=== PATIENT | female | born 1980 | race Caucasian/White ===

== ENCOUNTER 2018-06-19 07:01 | Day surgery (SDC) | payer BC ==
[2018-06-19] VITALS (10 sets, daily range): BP systolic 105–135; BP diastolic 62–82; PULSE 68–88; RESP 16–21
[~2018-06-19] VITALS: Ht 152.4 cm; Wt 61.0 kg
[~2018-06-19 07:01] MED LIST: CEFAZOLIN 2 GM/50 ML (PMX) 50 ML IVPB ONE
--- NOTE | 2018-06-19 08:43 | PREAC ---
Date/Time of Note Date/Time of Note DATE: 06/19/18 TIME: 08:42 Anesthesia Eval and Record Evaluation Time Pre-Procedure Interview DATE: 06/19/18 TIME: 08:42 Age 37 Sex female NPO: 8 hrs Preoperative diagnosis right foot bunions Planned procedure right foot bunionectomy Past Medical History Past Medical History: None Surgery & Anesthesia Issues No known issue Meds Anticoagulation: No Beta Russ within 24 hr: No Reason Beta Russ not given: Pt. not on B-Russ No Active Prescriptions or Reported Meds Meds reviewed: Yes Allergies Coded Allergies: No Known Allergy (Verified , 06/19/18) Allergies Reviewed: Yes Labs/Studies Labs Reviewed: Reviewed by anesthesiologist test: Negative Pre-procedure Exam Last vitals Vital Signs Date Temp Pulse Resp B/P (MAP) Pulse Ox O2 O2 Flow FiO2 Time Delivery Rate 06/19/18 97.0 78 16 125/68 98 Room Air 08:08 (87) Airway: Adequate mouth opening, Adequate thyromental dist Mallampati: Mallampati II Teeth: Normal Lung: Normal Heart: Normal ASA Physical Status ASA physical status: 1 Emergency: None Planned Anesthetic General/MAC: LMA Planned Pain Management Parenteral pain med, Local by surgeon Pre-operative Attestations Prior to commencing anesthesia and surgery, the patient was re-evaluated, there was verification of: *The patient's identity *The results of appropriate recent lab work and preoperative vital signs *The above evaluation not changing prior to induction *Anesthetic plan, risk benefits, alternative and complications discussed with patient/family; questions answered; patient/family understands, accepts and wishes to proceed. KYLAH FOLEY June 19, 2018 08:43
--- NOTE | 2018-06-19 09:13 | HPN ---
Date/Time of Note Date/Time of Note DATE: 06/19/18 TIME: 09:13 Interval H&P Admission Note Pt. seen H&P reviewed: No system changes ZINA COONEY DPM June 19, 2018 09:13
[2018-06-19] MEDS ORDERED: DESFLURANE 15 MIN ONE (09:30)
[2018-06-19] MEDS ORDERED: POLYMYXIN/BACITRACIN 1L IRRIG ONE (09:38)
[2018-06-19] MEDS ORDERED: BUPIVACAINE 0.5% (SDV) 30 ML INJ ONE (09:38)
[2018-06-19] MEDS ORDERED: LIDOCAINE 2% (SDV) 5 ML INJ ONE (09:43)
[2018-06-19] MEDS ORDERED: FENTAnyl 50 MCG/ML VIAL ONE ×2 (09:43→10:02)
[2018-06-19] MEDS ORDERED: CEFAZOLIN 1 GM INJ ONE (09:43)
[2018-06-19] MEDS ORDERED: MIDAZOLAM 1 MG/ML 2 ML INJ ONE (09:43)
[2018-06-19] MEDS ORDERED: PROPOFOL 20 ML ONE (09:43)
[2018-06-19] MEDS ORDERED: ONDANSETRON 4 MG INJ ONE (09:54)
[2018-06-19] MEDS ORDERED: DEXAMETHASONE 4 MG/ML 5 ML INJ ONE (09:54)
[2018-06-19] MEDS ORDERED: FAMOTIDINE 20 MG INJ ONE (09:54)
[2018-06-19] MEDS ORDERED: METOCLOPRAMIDE 10 MG INJ ONE (09:54)
[2018-06-19] MEDS ORDERED: ESMOLOL 10 ML ONE (10:09)
[2018-06-19] MEDS ORDERED: KETOROLAC 30 MG INJ ONE (10:26)
[2018-06-19] MEDS ORDERED: HYDROmorphONE 1 MG/5 ML IV SYRINGE IV PRN ×3 (10:30)
[2018-06-19] MEDS ORDERED: MEPERIDINE 25 MG INJ IV PRN (10:30)
[2018-06-19] MEDS ORDERED: ONDANSETRON 4 MG INJ IV PRN (10:30)
[2018-06-19] MEDS ORDERED: OXYCODONE/ACETAMINOPHEN (5/325) TAB PO PRN ×2 (10:30)
--- NOTE | 2018-06-19 10:50 | SIPON ---
Date/Time of Note Date/Time of Note DATE: 06/19/18 TIME: 10:48 Operative Report Preoperative Diagnosis Right foot bunion deformity Right foot pain Postoperative Diagnosis Right foot bunion deformity Right foot pain Operation/Procedure Performed Right foot bunionectomy Surgeon see signature line compounding assistant None Anesthesia: general Estimated blood loss: minimal Transfusion Required none Specimen Bone from right foot Grafts/Implants none Complications none ZINA COONEY DPM June 19, 2018 10:50
--- NOTE | 2018-06-19 10:51 | OPR ---
Date/Time of Note Date/Time of Note DATE: 06/19/18 TIME: 10:50 Operative Report Procedure Date: June 19, 2018 Preoperative Diagnosis Right foot bunion deformity Right foot pain Postoperative Diagnosis Right foot bunion deformity Right foot pain Operation/Procedure Performed Right foot bunionectomy Surgeon see signature line Anesthesia Type: general Estimated Blood Loss: minimal Transfusion none Grafts/Implants none Complications none Pt Condition Post Procedure: stable Disposition: PACU ZINA COONEY DPM June 19, 2018 10:51
--- NOTE | 2018-06-19 10:58 | PAC ---
Date/Time of Note Date/Time of Note DATE: 06/19/18 TIME: 10:55 Post-Anesthesia Notes Post-Anesthesia Note Last documented vital signs pacu bp 135/69 spo2 98% rr 16 hr 93 temp 97.8 Vital Signs Date Temp Pulse Resp B/P (MAP) Pulse Ox O2 O2 Flow FiO2 Time Delivery Rate 06/19/18 97.8 10:53 06/19/18 78 16 125/68 98 Room Air 08:08 (87) Activity: WNL Respiratory function: WNL Cardiovascular function: WNL Mental status: Baseline Pain reasonably controlled: Yes Hydration appropriate: Yes Nausea/Vomiting absent: Yes KYLAH FOLEY June 19, 2018 10:58
== END 2018-06-19 12:24 | disposition home or self-care (01) ==
LOC: SDS 07:01
PROVIDERS: ATTEND Podiatrist Foot & Ankle Surgery
DX: M21.611 Bunion of right foot (principal); M20.61 Acquired deformities of toe(s), unspecified, right foot; E78.5 Hyperlipidemia, unspecified
CPT/HCPCS: 73630; 88304; 88311; J0690; J1100; J1885; J2250; J2405; J2765; J3010; Z7512; Z7610